=== PATIENT | female | born 1990 | race Asian ===

== ENCOUNTER 2017-02-12 01:21 | Inpatient (IN) | payer BC ==
[2017-02-12] MEDS ORDERED: Sodium Chloride 0.9% 10 ML Syringe FLUSH PRN (03:06)
[2017-02-12] MEDS ORDERED: Oxytocin/Lactated Ringers 10 UNIT/1,000 ML BAG IV SCH ×2 (03:15→10:30)
[2017-02-12] MEDS ORDERED: Lactated Ringers 1,000 ML IV SCH (03:15)
[2017-02-12] MEDS ORDERED: Lidocaine 1% 50 ML MDV ONE (12:50)
[2017-02-12] MEDS ORDERED: Docusate Sodium 100 MG Cap PO PRN (13:58)
[2017-02-12] MEDS ORDERED: Witch Hazel Medicated Pads 100/Jar TOP PRN (13:58)
[2017-02-12] MEDS ORDERED: Simethicone 80 MG Tab.Chew PO PRN (13:58)
[2017-02-12] MEDS ORDERED: Benzocaine/Menthol 20%-0.5% Spray 56 GM Canister TOP PRN (13:58)
[2017-02-12] MEDS ORDERED: Lanolin 100% Cream 7 GM Tube TOP PRN (13:58)
[2017-02-12] MEDS: Ibuprofen 600 MG Tab PO PRN (15:17)
[2017-02-12] MEDS ORDERED: Acetaminophen 325 MG Tab PO PRN (19:56)
--- NOTE | 2017-02-12 22:25 | PCM.LDHP ---
L&D History of Present Illness - General Date of Service: 02/12/17 Admit Problem/Dx: Admission Diagnosis/Problem Admission Diagnosis/Problem Normal labor Source of Information: Patient History Limitations: Reports: No limitations - History of Present Illness Pain Score: 3 - Related Data Allergies/Adverse Reactions: Allergies Allergy/AdvReac Type Severity Reaction Status Date / Time No Known Allergies Allergy Verified 07/05/16 08:23 Home Medications: Home Meds Vit No.129/Iron/FA [ Tablet] 1 each PO DAILY 07/05/16 [History] Past Medical History - Past Health History Medical/Surgical History: Denies Medical/Surgical History Social & Family History - Tobacco Use Smoking Status *Q: Never Smoker Second Hand Smoke Exposure: No - Caffeine Use Caffeine Use: Reports: Coffee Other Caffeine Use: occ - Recreational Drug Use Recreational Drug Use: No H&P Review of Systems - Review of Systems: Review Of Systems: See Below General: Reports: no symptoms HEENT: Reports: no symptoms Pulmonary: Reports: No Symptoms Cardiovascular: Reports: no symptoms Gastrointestinal: Reports: No symptoms Genitourinary: Reports: no symptoms Musculoskeletal: Reports: no symptoms Skin: Reports: no symptoms Psychiatric: Reports: no symptoms Neurological: Reports: No Symptoms Hematologic/Lymphatic: Reports: no symptoms Immunologic: Reports: no symptoms L&D Exam - Exam Exam: See Below - Vital Signs Vital Signs: Last Vital Signs Temp 36.3 C 02/12/17 02:33 Pulse 76 02/12/17 02:33 Resp 18 02/12/17 02:33 BP 123/76 02/12/17 02:33 Pulse Ox Weight: 73.028 kg - OB Specific Contraction Intensity: Mild to Moderate movement: active heart tones: present Heart Rate (FHR) Variability: Moderate (6-25 bmp) Presentation: Vertex - Armenta Score Armenta Score Dilation: 3-4 cm Armenta Score Infant's Station: -2 - Exam General: alert HEENT: Conjunctiva clear Neck: supple, trachea midline Cardiovascular: regular rate Abdomen: soft Genitourinary: Normal external exam Back Exam: normal inspection, full range of motion Extremities: normal inspection Skin: warm, dry, intact Neurological: cranial nerves intact, reflexes equal bilateral Psychiatric: alert, normal affect, normal mood Problem List Initiated/Reviewed/Updated: Yes Orders Last 24hrs: Active Orders 24 hr Category Date Time Status Activity as Tolerated [RC] PER UNIT ROUTINE Care 02/12/17 13:58 Active Vital Signs [RC] 04,12,20 Care 02/12/17 13:58 Active Vital Signs [RC] PER UNIT ROUTINE Care 02/12/17 03:07 Inactive Regular Diet [DIET] Diet 02/12/17 Lunch Active Acetaminophen [Tylenol] Med 02/12/17 19:56 Active 650 mg PO Q4H PRN Benzocaine/Menthol [Dermoplast Pain Relief [place]] Med 02/12/17 13:58 Active See Dose Instructions TOP ASDIRECTED PRN Docusate Sodium [Colace] Med 02/12/17 13:58 Active 100 mg PO BID PRN Ibuprofen [Motrin] Med 02/12/17 13:58 Active 600 mg PO Q6H PRN Lanolin [Lansinoh HPA] Med 02/12/17 13:58 Active See Dose Instructions TOP ASDIRECTED PRN Simethicone Med 02/12/17 13:58 Active 80 mg PO Q4H PRN Witch Mita [Tucks] Med 02/12/17 13:58 Active 1 pad TOP ASDIRECTED PRN Assess Lochia [WOMSER] Per Unit Routine Oth 02/12/17 13:58 Ordered Assess Uterine Involution [WOMSER] Per Unit Routine Oth 02/12/17 13:58 Ordered Breast Pump [WOMSER] Per Unit Routine Oth 02/12/17 13:58 Ordered Heat Therapy [OM.PC] PRN Oth 02/12/17 13:58 Ordered Heat Therapy [OM.PC] PRN Oth 02/13/17 13:58 Ordered Medication Administration Instruction [OM.PC] Routine Oth 02/12/17 13:58 Ordered Perineal Care [OM.PC] Per Unit Routine Oth 02/12/17 13:58 Ordered Sitz Bath [OM.PC] Per Unit Routine Oth 02/12/17 13:58 Ordered Resuscitation Status Routine Resus Stat 02/12/17 03:06 Ordered Medication Orders Acetaminophen (Tylenol) 650 mg PO Q4H PRN PRN Reason: Pain Last Admin: 02/12/17 20:02 Dose: 650 mg Benzocaine/Menthol (Dermoplast Pain Relief [place]) 0 gm TOP ASDIRECTED PRN PRN Reason: Perineal Comfort Measure Last Admin: 02/12/17 15:18 Dose: 1 spray Docusate Sodium (Colace) 100 mg PO BID PRN PRN Reason: Constipation Emollient Ointment (Lansinoh Hpa) 0 gm TOP ASDIRECTED PRN PRN Reason: Sore Nipples Ibuprofen (Motrin) 600 mg PO Q6H PRN PRN Reason: Mild pain or fever Last Admin: 02/12/17 15:17 Dose: 600 mg Simethicone (Simethicone) 80 mg PO Q4H PRN PRN Reason: Gas Witch Mita (Tucks) 1 pad TOP ASDIRECTED PRN PRN Reason: Hemorrhoid pain Last Admin: 02/12/17 15:18 Dose: 1 pad Assessment/Plan Comment:: Term SROM Anticipate .
[2017-02-13] MEDS: Ibuprofen 600 MG Tab PO PRN ×2 (01:14→09:39)
[2017-02-13 05:19] VITALS: BP 114/66
--- NOTE | 2017-02-13 10:08 | PCM.DCSUM1 ---
Discharge Summary - Discharge Data Discharge Date: 02/13/17 Discharge Disposition: Home, Self-Care 01 Condition: Good - Patient Instructions Diet: Usual Diet as Tolerated Activity: No Strenuous Activities Driving: May Drive Today Showering/Bathing: May Shower Notify Provider of: Fever, Increased Pain, Swelling and Redness, Drainage, Nausea and/or Vomiting - Discharge Plan Home Medications: Home Meds Vit No.129/Iron/FA [ Tablet] 1 each PO DAILY 07/05/16 [History] Referrals: Brooke Hernandez MD [Primary Care Provider] - (6 weeks) - Discharge Summary/Plan Comment DC Time >30 min.: No - General Info Date of Service: 02/13/17 Functional Status: Reports: pain controlled - Review of Systems General: Reports: No Symptoms HEENT: Reports: no symptoms Pulmonary: Reports: no symptoms Cardiovascular: Reports: No Symptoms Gastrointestinal: Reports: No symptoms Genitourinary: Reports: no symptoms Musculoskeletal: Reports: no symptoms Skin: Reports: no symptoms Neurological: Reports: No Symptoms Psychiatric: Reports: no symptoms - Patient Data Vitals - Most Recent: Last Vital Signs Temp 36.4 C 02/13/17 03:30 Pulse 58 L 02/13/17 03:30 Resp 14 02/13/17 03:30 BP 114/66 02/13/17 03:30 Pulse Ox 94 L 02/13/17 03:30 Weight - Most Recent: 73.028 kg Med Orders - Current: Current Medications Acetaminophen (Tylenol) 650 mg PO Q4H PRN PRN Reason: Pain Last Admin: 02/12/17 20:02 Dose: 650 mg Benzocaine/Menthol (Dermoplast Pain Relief [place]) 0 gm TOP ASDIRECTED PRN PRN Reason: Perineal Comfort Measure Last Admin: 02/12/17 15:18 Dose: 1 spray Docusate Sodium (Colace) 100 mg PO BID PRN PRN Reason: Constipation Last Admin: 02/13/17 09:39 Dose: 100 mg Emollient Ointment (Lansinoh Hpa) 0 gm TOP ASDIRECTED PRN PRN Reason: Sore Nipples Last Admin: 02/13/17 09:43 Dose: 1 tube Ibuprofen (Motrin) 600 mg PO Q6H PRN PRN Reason: Mild pain or fever Last Admin: 02/13/17 09:39 Dose: 600 mg Simethicone (Simethicone) 80 mg PO Q4H PRN PRN Reason: Gas Witch Mita (Tucks) 1 pad TOP ASDIRECTED PRN PRN Reason: Hemorrhoid pain Last Admin: 02/12/17 15:18 Dose: 1 pad Discontinued Medications Lactated Ringer's (Ringers, Lactated) 1,000 mls @ 100 mls/hr IV ASDIRECTED NELLY Last Admin: 02/12/17 11:06 Dose: 100 mls/hr Oxytocin/Lactated Ringer's (Pitocin In Lr 10 Units/1,000 Ml) 10 unit in 1,000 mls @ 500 mls/hr IV ASDIRECTED NELLY Oxytocin/Lactated Ringer's (Pitocin In Lr 10 Units/1,000 Ml) 10 unit in 1,000 mls @ 12 mls/hr IV TITRATE NELLY; 2 MUNITS/MIN PRN Reason: Protocol Last Titration: 02/12/17 11:40 Dose: 4 munits/min, 24 mls/hr Lidocaine HCl (Xylocaine 1%) Confirm Administered Dose 50 ml .ROUTE .[employer] ONE Stop: 02/12/17 12:51 Last Admin: 02/12/17 18:11 Dose: Not Given Sodium Chloride (Saline Flush) 10 ml FLUSH ASDIRECTED PRN PRN Reason: Keep Vein Open - Exam General: Reports: alert, oriented HEENT: Reports: Pupils equal, Pupils reactive, EOMI, Mucous membr. moist/pink Neck: Reports: supple Lungs: Reports: Clear to auscultation, Normal respiratory effort Cardiovascular: Reports: Regular Rate, Regular Rhythm Abdomen: Reports: bowel sounds present, soft, no tenderness, no distension (Female) Exam: Normal external exam, Normal speculum exam, Normal bimanual exam Rectal (Female) Exam: Normal Exam, Normal rectal tone Back Exam: Reports: normal inspection, full range of motion Extremities: Reports: no edema, normal pulses Skin: Reports: warm, dry, intact Wound/Incisions: Reports: healing well Neurological: Reports: no new focal deficit Psy/Mental Status: Reports: alert, normal affect, normal mood *Q Meaningful Use (DIS) - VTE *Q VTE Criteria *Q: - Stroke *Q Stroke Criteria *Q: - AMI *Q AMI Criteria *Q:
== END 2017-02-13 14:00 | disposition home or self-care (01) | DRG 560 ==
LOC: JD.OBCHECK 01:21 → JD.OB 01:21 → JD.OBCHECK 02:25 → JD.OB 02:25 → OBSVTOIN 12:46
PROVIDERS: ADMIT Obstetrics & Gynecology; ATTEND Obstetrics & Gynecology
PROC: 10E0XZZ Delivery of Products of Conception, External Approach (ICD-10-PCS; principal; 2017-02-12)
DX: O42.92 Full-term premature rupture of membranes, unspecified as to length of time between rupture and onset of labor (principal); O69.81X0 Labor and delivery complicated by cord around neck, without compression, not applicable or unspecified; Z3A.39 39 weeks gestation of pregnancy; Z37.0 Single live birth
CPT/HCPCS: A9270-GY; J2590; J7120